=== PATIENT | male | born 1965 | race Two or more races ===

== ENCOUNTER → 2018-08-23 | Outpatient (CLI) | payer BC ==
--- NOTE | 2018-08-23 10:42 | CARD ---
MR#: [id number] Date of Study: 08/23/2018 Ordering Physician: MAMADOU SALAS, Referring Physician: MAMADOU SALAS, Tech: Gina Guillen [facility] APPROVED REPORT EXAM: Two-dimensional and M-mode echocardiogram with Doppler and color Doppler. Other Information Quality : GoodHR: 68bpm Rhythm : NSR INDICATION Dyspnea 2D DIMENSIONS RVDd2.9 (2.9-3.5cm)IVSd1.3 (0.7-1.1cm) Aortic Root(2D)2.8 (2.0-3.7cm)LVDd4.7 (3.9-5.9cm) PWd1.2 (0.7-1.1cm)LVDs3.1 (2.5-4.0cm) FS (%) 35.3 %SV66.9 ml LVEF(%)64.6 (>50%) M-Mode DIMENSIONS Left Atrium(MM)3.35 (2.5-4.0cm)Aortic Root3.90 (2.2-3.7cm) Aortic Valve AoV Peak Dean.181.0cm/sAoV VTI34.7cm AO Peak GR.13.1mmHgLVOT Peak Dean.132.7cm/s AO Mean GR.7mmHgAVA (VTI)2.20cm2 AI P 1/2 [id number] Mitral Valve MV E Kyaezege65.7cm/sMV E Peak Gr.2mmHg MV DECEL [id number] A Kvzsumiw60.5cm/s MV E Mean Gr.1mmHgE/A Ratio0.9 MV A [id number] Pulmonary Valve PV Peak Sqgyqzla304.6cm/s Tricuspid Valve TR P. Wiaucuil368ch/sRAP [id number] TR Peak Gr.75bzIeKHXN61tjLk LEFT VENTRICLE The left ventricle is normal size. There is mild concentric left ventricular hypertrophy. The left ve ntricular systolic function is normal and the ejection fraction is within normal range. The Ejection Fraction is 60-65%. There is normal LV segmental wall motion. Transmitral Doppler flow pattern is Gra de I-abnormal relaxation pattern. RIGHT VENTRICLE The right ventricle is normal size. There is normal right ventricular wall thickness. The right ventr icular systolic function is normal. ATRIA The left atrium size is normal. The right atrium size is normal. The interatrial septum is intact wit h no evidence for an atrial septal defect or patent foramen ovale as noted on 2-D or Doppler imaging. AORTIC VALVE The aortic valve is normal in structure and function. The aortic valve is trileaflet. Doppler and Col or Flow revealed trace to mild aortic regurgitation. There is no significant aortic valvular stenosis . MITRAL VALVE The mitral valve is normal in structure and function. There is no evidence of mitral valve prolapse. There is no mitral valve stenosis. Doppler and Color Flow revealed no mitral valve regurgitation note d. TRICUSPID VALVE The tricuspid valve is normal in structure and function. Doppler and Color Flow revealed mild tricusp id regurgitation. The PA pressure was estimated at 28 mmHg. There is no tricuspid valve prolapse or v egetation. There is no tricuspid valve stenosis. PULMONIC VALVE Doppler and Color Flow revealed no pulmonic valvular regurgitation. There is no pulmonic valvular toro nosis. GREAT VESSELS The aortic root is mildly enlarged. The ascending aorta is borerline dilated at 3.7cm. The IVC is nor mal in size and collapses >50% with inspiration. PERICARDIAL EFFUSION There is no evidence of significant pericardial effusion. Critical Notification Critical Value: No <Conclusion> The left ventricular systolic function is normal and the ejection fraction is within normal range. Th e Ejection Fraction is 60-65%. There is normal LV segmental wall motion. The ascending aorta is borerline dilated at 3.7cm. Signed by : Manoj Garduno, Electronically Approved : 08/23/2018 10:41:12
== END | disposition home or self-care (01) ==
LOC: ECHO 09:26
PROVIDERS: ATTEND Internal Medicine Cardiovascular Disease
DX: I08.2 Rheumatic disorders of both aortic and tricuspid valves (principal)
CPT/HCPCS: 93306